=== PATIENT | male | born 1980 | race Caucasian/White ===

== ENCOUNTER 2021-07-25 09:53 | Observation (INO) | payer BC, SELFPAY ==
[2021-07-25] VITALS (8 sets, daily range): BP systolic 118–138; BP diastolic 61–89; PULSE 74–112; RESP 16–20; TEMP 36.1–38.4; O2SAT 95–100
--- NOTE | ~2021-07-25 | CT_ITS ---
EXAMINATION: CT brain wo con DATE: 07/25/2021 10:34 INDICATION: Syncope. TECHNIQUE: Computed tomography (CT) of the head was performed without intravenous contrast. The mA wa s adjusted according to patient size. Iterative reconstruction technique was employed. The dose-lengt h product was 605.33 mGy-cm. COMPARISON: None FINDINGS: There is no intracranial hemorrhage, acute infarction, or abnormal intracranial mass lesion . The ventricles are normal in size. There is mild mucosal thickening in the paranasal sinuses. The o rbits are normal. The mastoid air cells are normal. IMPRESSION: 1. Normal brain. Reviewed, dictated and finalized at location A. ENIR AND NOVELTY MAKER IMPRESSION: 1. Normal brain.
--- NOTE | ~2021-07-25 | CT_ITS ---
EXAMINATION: CT cervical spine wo con DATE: 07/25/2021 10:34 INDICATION: Head injury. TECHNIQUE: Computed tomography (CT) of the cervical spine was performed without intravenous contrast. Automated exposure control and iterative reconstruction technique were employed. The dose-length pro duct was 419.93 mGy-cm. COMPARISON: None FINDINGS: There is 5 degrees dextrocurvature of cervical spine. Vertebral body heights and interverte bral disc heights are normal. The following disc levels are specifically discussed: C2-C3: There is no uncovertebral joint osteoarthritis. There is mild right and moderate left facet mathew int osteoarthritis. There is no neural foraminal stenosis. There is no central canal stenosis. C3-C4: There is mild bilateral uncovertebral joint osteoarthritis. There is mild right facet joint os teoarthritis. There is no neural foraminal stenosis. There is no central canal stenosis. C4-C5: There is no uncovertebral joint osteoarthritis. There is no facet joint osteoarthritis. There is no neural foraminal stenosis. There is no central canal stenosis. C5-C6: There is severe right and mild left uncovertebral joint osteoarthritis. There is mild left fac et joint osteoarthritis. There is mild right neural foraminal stenosis. There is mild central canal s tenosis. C6-C7: There is mild bilateral uncovertebral joint osteoarthritis. There is mild bilateral facet join t osteoarthritis. There is mild right neural foraminal stenosis. There is mild central canal stenosis . C7-T1: There is no uncovertebral joint osteoarthritis. There is mild bilateral facet joint osteoarthr itis. There is no neural foraminal stenosis. There is no central canal stenosis. IMPRESSION: 1. No fracture. 2. Mild cervical spondylosis. Reviewed, dictated and finalized at location A. ER MANAGER
--- NOTE | ~2021-07-25 | XR_ITS ---
XR chest 1V portable DATE: 07/25/2021 10:34 INDICATION: Syncope TECHNIQUE: Portable upright AP chest on 07/25/2021 at 1031 hours COMPARISON: None FINDINGS: Normal heart size. No hilar or mediastinal enlargement. No pulmonary infiltrate or consolid ation, pleural effusion or pulmonary vascular congestion or pneumothorax. IMPRESSION: No active cardiopulmonary disease Reviewed, dictated and finalized at location B. TER HELPER
--- NOTE | 2021-07-25 10:12 | ECG_ITS ---
Measurements Intervals [place] Rate: 77 P: 42 LA: 156 QRS: 74 QRSD: 89 T: 53 QT: 363 QTc: 412 Interpretive Statements SINUS RHYTHM NORMAL ECG Electronically Signed On 07-25-2021 11:10:49 AGENCY SERVICE REPRESENTATIVE by Uriel Mann D.O.
[2021-07-25 10:26] LABS: Basophils Absolute Auto 0.03 K/mm3 (0.00-0.10); Basophils Percent Auto 0.3 % (0.0-1.0); Eosinophils Absolute Auto 0.01 K/mm3 (0.02-0.50); Eosinophils Percent Auto 0.1 % (1.0-6.0); Hematocrit 46.6 % (40.0-54.0); Immature Granulocyte Absolute 0.03 K/mm3 (0.00-0.00); Immature Granulocyte Percent A 0.3 % (0.0-0.0); Lymphocytes Absolute Auto 2.28 K/mm3 (1.10-4.50); Lymphocytes Percent Auto 21.1 % (18.0-42.0); Mean Corpuscular HGB Conc 34.3 g/dL (32.0-36.0); Mean Corpuscular Hemoglobin 31.1 pg (27.0-31.0); Mean Corpuscular Volume 90.7 fL (78.0-102.0); Mean Platelet Volume 9.7 fl (8.7-11.0); Monocytes Absolute Auto 1.24 K/mm3 (0.10-0.90); Monocytes Percent Auto 11.4 % (2.0-11.0); Neutrophils Absolute Auto 7.2 K/mm3 (1.7-7.2); Neutrophils Percent Auto 66.8 % (50.0-70.0); Platelet Count Result 251 K/mm3 (150-420); Red Blood Count 5.14 M/mm3 (4.70-6.10); Red Cell Distribution Width 11.6 % (11.6-14.4); White Blood Count 10.8 K/mm3 (4.8-10.8)
[2021-07-25] MEDS: ONDANSETRON INJ 4 MG/2 ML VIAL IV PUSH (10:29)
[2021-07-25] MEDS: SODIUM CHLORIDE 0.9% IV 1,000 ML 999 ML (10:30)
[2021-07-25] MEDS: PANTOPRAZOLE SODIUM IV 40 MG VIAL IV PUSH (10:30)
[2021-07-25 10:47] LABS: Alanine Aminotransferase 33 U/L (16-63); Albumin Level 3.9 g/dL (3.4-5.0); Alkaline Phosphatase 67 U/L (46-116); Anion Gap 14 mmol/L (8-16); Aspartate Amino Transferase 16 U/L (15-37); Bilirubin,Total 0.6 mg/dL (0.00-1.00); Blood Urea Nitrogen 11 mg/dL (7-18); Calcium 8.6 mg/dL (8.5-10.1); Carbon Dioxide 21 mmol/L (21-32); Chloride 102 mmol/L (98-108); Estimated CRCL calculation 83 ml/min; Estimated Glomerular Filt Rate > 60; Glucose 130 mg/dL (70-99); Lipase 123 U/L (73-393); Osmolality Calculated 285 mOsm/kg (285-295); Potassium 4.1 mmol/L (3.5-5.1); Sodium 137 mmol/L (136-145); Total Protein 7.8 g/dL (6.4-8.2)
[2021-07-25 10:56] LABS: Troponin I < 4.0 ng/L (0.00-60.4)
[2021-07-25 10:57] LABS: Ethanol < 3 mg/dL (0-6)
--- NOTE | 2021-07-25 11:03 | PC.NURSE ---
erp is notifed of ct report, c-collar can be removed and patient can walk to bathroom per erp. family at bedside with change of clothing.
[2021-07-25 11:38] LABS: Add Urine Microscopic? NO; Appearance Urine Clear (Clear); Bilirubin Urine Negative (Negative); Blood Urine Negative (Negative); Color Urine Light Yellow (Yellow); Glucose Urine UA Negative (Negative); Ketones Urine Negative (Negative); Leukocyte Esterase Ur Negative (Negative); Nitrate Urine Negative (Negative); Protein Urine Negative (Negative); Urobilinogen Urine 0.2 mg/dL (0.2-1.0); pH Urine 5.5 (5.0-8.0)
[2021-07-25 11:49] LABS: Amphetamine Screen Urine Negative (Negative); Barbiturate Screen Urine Negative (Negative); Benzodiazepines Screen Urine Negative (Negative); Cannabinoid Screen Urine Negative (Negative); Cocaine Screen Urine Negative (Negative); Methadone Screen Urine Negative (Negative); Opiate Screen Urine Negative (Negative); Phencyclidine Screen Urine Negative (Negative)
[2021-07-25 12:04] LABS: Influenza Control Valid (Valid)
[2021-07-25 13:22] LABS: Reflex Lactic Acid Yes or No Add Lactic
--- NOTE | 2021-07-25 13:38 | ED.SYNCOPE ---
HPI - Syncope General Chief Complaint: Syncope Stated Complaint: ambulance Time Seen by Provider: 07/25/21 09:57 Source: patient and RN notes reviewed Mode of arrival: ambulatory Limitations: no limitations History of Present Illness complaint: almost passed out Onset (ago): hour(s) (12) Context: standing up and other (pt was driving and became very nauseated. out of the car, he vomited and collapsed, seizing.) Injuries sustained associated with event: face Current symptoms: back to baseline and headache History: previous syncopal episode Treatments prior to arrival: IV fluids Related Data Home Medications Medication Instructions Recorded Confirmed No Home Medications 07/25/21 07/25/21 Allergies Allergy/AdvReac Type Severity Reaction Status Date / Time No Known Allergies Allergy Verified 07/25/21 10:21 Review of Systems Review of Systems: All systems reviewed & are unremarkable except as noted in HPI and below Neurologic: Comments: seizure episode PMFSH Past Medical History Medical History Seizure Social History Social History Smoking status: Never smoker Alcohol intake: current Drinks per week: 1 Substance use: never Spiritual care concerns: No Exam Const: General: no acute distress and alert Nutritional Appearance: well nourished Limitations: no limitations HENMT: Head: normal to inspection Ears: external ears normal and TM's normal bilaterally General nose exam: Normal external nose present and Normal nares present Mouth: Yes lip normal and Yes moist mucous membranes Teeth and gingiva: dentition normal Throat: posterior oropharynx normal Eyes: Pupils: Equal, round and reactive pupils present EOM: EOMs intact bilaterally Neck: Neck: normal visual inspection and no lymphadenopathy Chest: Chest palpation & inspection: normal inspection of the chest Resp: Effort & Inspection: normal respiratory effort Auscultation: clear to auscultation bilaterally Cardio: Rate: regular rate Rhythm: regular rhythm GI: Auscultation: normal bowel sounds : General: Yes bladder normal to palpation and Yes no CVA tenderness Back/Spine/Pelvis: Back: no CVA tenderness Skin: General skin exam: normal color Rashes: no rashes Neuro: General: patient oriented x3, moves all extremities, no meningeal signs, no focal motor deficits and CN's II-XI intact bilaterally Extrem: General: normal to inspection and no pedal edema Psych: Appearance: grossly normal and well kempt Affect: normal affect Attitude: cooperative Thought content: Yes Normal thought content present Course Course Emergency Course: Pt was d/w Neurologist Dr Teran: admit to Observation. Start Keppra and plan for PO Keppra and early Neuro f/u when the pt is discharged. Reevaluation(s) Reevaluation #1: Pt had no seizure in the ED. for admission and Neurology consult shabana. Date: 07/25/21 Time: 10:55 Vital Signs Vital signs: Vital Signs Temperature 36.1 C L 07/25/21 10:02 Pulse Rate 82 07/25/21 10:02 Respiratory Rate 20 07/25/21 10:02 Blood Pressure 131/87 07/25/21 10:02 Pulse Oximetry 95 07/25/21 10:02 Temperature 36.6 C 07/26/21 12:00 Pulse Rate 75 07/26/21 12:00 Respiratory Rate 18 07/26/21 12:00 Blood Pressure 111/68 07/26/21 12:00 Pulse Oximetry 96 07/26/21 12:00 MDM - Syncope Differential Diagnosis Differential diagnosis: Likely syncope due to orthostatic hypotension, vasovagal syncope, dehydration and other (new-onset seizure) Medical Records Attestation: I reviewed the patient's medical records. Lab Data Attestation: I reviewed the patient's lab results. Result diagrams: 07/26/21 05:39 07/26/21 05:39 Labs: Lab Results 07/25/21 07/25/21 07/25/21 Range/Units 10:12 10:16 10:16 WBC (4.8-10.8) K/mm3 RBC (4.70-6.10)
[2021-07-25] MEDS: levETIRAcetam 1000MG/NACL100ML 1,000 MG/100 ML BAG 400 MG IVPB (13:40)
[2021-07-25 14:29] LABS: Lactic Acid 1.3 mmol/L (0.4-2.0)
[2021-07-25 14:51] LABS: SARS-CoV-2 Ag Positive (Negative)
[2021-07-25] MEDS: SODIUM CHLORIDE 0.9% IV 1,000 ML 100 ML IV CONT (16:28)
--- NOTE | 2021-07-25 16:34 | ADMGEN ---
This patient, Gerry Sanchez, was admitted to 2nd Floor Room 212-1. Patient/family oriented to hospital policies and general routines including ID bracelet, bed and alarms, visiting hours, pain management, procedures, bathroom and other care routines, personal items, smoking policy, room service/diet, and visiting hours. Information on how to activate the Rapid Response Team has been discussed. Patient/Family are encouraged to report perceived risks to care and to ask questions if they do not understand what they are told or what they should do.
--- NOTE | 2021-07-25 20:45 | PC.NURSE ---
Pt sitting bedside watching TV on his computer. Pt bundled in covers and reports slight sore throat, noted flushed skin and temp of 101. Pt denies any other sxs and drinking water and ice chips. Pt is fully ambulatory in room per self and has no other c/o. Order obtained for prn Tylenol. Call browne at pt side and encouraged to call if anything needed. Pt verbalized understanding.
[2021-07-25] MEDS: ACETAMINOPHEN 500 MG TABLET 1000 MG PO (21:25)
--- NOTE | 2021-07-26 00:29 | PC.NURSE ---
Pt sleeping, no distress noted, call browne within pt reach.
[2021-07-26] MEDS: SODIUM CHLORIDE 0.9% IV 1,000 ML 100 ML IV CONT (03:08)
[2021-07-26 04:25] VITALS: BP 134/80; PULSE 84; RESP 20; TEMP 37.3; O2SAT 96
[2021-07-26 05:49] LABS: Basophils Absolute Auto 0.02 K/mm3 (0.00-0.10); Basophils Percent Auto 0.3 % (0.0-1.0); Eosinophils Absolute Auto 0.02 K/mm3 (0.02-0.50); Eosinophils Percent Auto 0.3 % (1.0-6.0); Hemoglobin 14.5 g/dL (14.0-18.0); Immature Granulocyte Absolute 0.02 K/mm3 (0.00-0.00); Immature Granulocyte Percent A 0.3 % (0.0-0.0); Lymphocytes Absolute Auto 1.94 K/mm3 (1.10-4.50); Lymphocytes Percent Auto 24.7 % (18.0-42.0); Mean Corpuscular HGB Conc 33.7 g/dL (32.0-36.0); Mean Corpuscular Hemoglobin 30.9 pg (27.0-31.0); Mean Corpuscular Volume 91.7 fL (78.0-102.0); Mean Platelet Volume 9.6 fl (8.7-11.0); Monocytes Absolute Auto 0.69 K/mm3 (0.10-0.90); Monocytes Percent Auto 8.8 % (2.0-11.0); Neutrophils Absolute Auto 5.2 K/mm3 (1.7-7.2); Neutrophils Percent Auto 65.6 % (50.0-70.0); Platelet Count Result 238 K/mm3 (150-420); Red Blood Count 4.69 M/mm3 (4.70-6.10); Red Cell Distribution Width 11.7 % (11.6-14.4); White Blood Count 7.9 K/mm3 (4.8-10.8)
[2021-07-26 06:02] LABS: Alanine Aminotransferase 25 U/L (16-63); Albumin Level 3.4 g/dL (3.4-5.0); Alkaline Phosphatase 57 U/L (46-116); Anion Gap 10 mmol/L (8-16); Aspartate Amino Transferase 12 U/L (15-37); Bilirubin,Total 0.5 mg/dL (0.00-1.00); Blood Urea Nitrogen 6 mg/dL (7-18); Calcium 8.2 mg/dL (8.5-10.1); Carbon Dioxide 25 mmol/L (21-32); Chloride 104 mmol/L (98-108); Estimated CRCL calculation 101 ml/min; Estimated Glomerular Filt Rate > 60; Glucose 105 mg/dL (70-99); Osmolality Calculated 285 mOsm/kg (285-295); Sodium 139 mmol/L (136-145); Total Protein 6.9 g/dL (6.4-8.2)
--- NOTE | 2021-07-26 06:46 | PC.NURSE ---
Pt sleeping, no distress, call browne in reach.
[2021-07-26 08:00] VITALS: BP 128/80; PULSE 92; RESP 16; TEMP 37.6; O2SAT 97
[2021-07-26 08:39] VITALS: TEMP 37.7
[2021-07-26] MEDS: ACETAMINOPHEN 500 MG TABLET 1000 MG PO (08:39)
[2021-07-26 10:25] VITALS: TEMP 36.7
--- NOTE | 2021-07-26 10:35 | PM.SD2 ---
Same Day Admit/Disch: HPI History of Present Illness Chief complaint: SIEZURES <TRUDI Marlow - Last Filed: 07/26/21 12:13> Narrative: Gerry Sanchez is a 41 year old male who has been admitted under Observation for Seizure activity. Pt states he was driving back home with his after a work conference in [place], [place]. he began to feel ill and pulled over to the side of the road. He moved to the back of his vehicle thinking he was going to vomit. He states he began to feel like he was going to vomit and the next thing he recalls is waking up to his on the phone with 911. Pt states he does not recall any CP, SOB, palpitations, numbness, tingling, weakness, blurred or changes in vision. He only felt ill like he was going to vomit. He has not had any changes in his medications and in fact does not take any medications. He denies ever having seizure activity in the past. Transfer to another facility is not possible at this time. Pt will be given orders for outpatient MRI w/ contrast and for EEG. <TRUDI Marlow - Last Filed: 07/26/21 12:13> [facility] Past Medical History Medical History: Medical History Seizure <TRUDI Marlow - Last Filed: 07/26/21 12:13> Social History Social History: Social History Smoking status: Never smoker Alcohol intake: current Drinks per week: 1 Substance use: never Spiritual care concerns: No <TRUDI Marlow - Last Filed: 07/26/21 12:13> Same Day Admit/Disch: Med Pre-admit Medications Home Medications: Home Medications Medication Instructions Recorded Confirmed Type No Home Medications 07/25/21 07/25/21 History dexamethasone [Decadron] 6 mg PO DAILY #10 tablet 07/26/21 Rx levetiracetam [Keppra] 500 mg PO Q12HR #60 tablet 07/26/21 Rx <TRUDI Marlow - Last Filed: 07/26/21 12:13> Exam Const: General: cooperative, healthy appearing, comfortable, no acute distress, well developed, alert, awake and Physically active <Tommie Cabrera NATHAN - Last Filed: 07/26/21 12:13> Nutritional Appearance: average body habitus <Tommie Cabrera NATHAN-C - Last Filed: 07/26/21 12:13> HENMT: Head: normal to inspection, normocephalic and atraumatic <Tommie Cabrera VP INTEGRATION - Last Filed: 07/26/21 12:13> Ears: hearing grossly normal bilaterally <Tommie Cabrera APN - Last Filed: 07/26/21 12:13> Eyes: General: appearance normal, both eyes and all related structures <Tommie Cabrera VP INTEGRATION - Last Filed: 07/26/21 12:13> Alignment and Position: alignment normal <Tommie Cabrera VP INTEGRATION - Last Filed: 07/26/21 12:13> Periorbital: periorbital findings normal <Tommie Cabrera APN - Last Filed: 07/26/21 12:13> Eyelids: eyelids normal <Tommie Cabrera APN - Last Filed: 07/26/21 12:13> Conjunctivae: conjunctivae normal <Tommie Cabrera APN - Last Filed: 07/26/21 12:13> Pupils: Equal, round and reactive pupils present <Tommie Cabrera VP INTEGRATION - Last Filed: 07/26/21 12:13> Neck: Neck: full ROM and no JVD <Tommie Cabrera VP INTEGRATION - Last Filed: 07/26/21 12:13> Resp: Effort & Inspection: normal respiratory effort and no cough <Tommie Cabrera VP INTEGRATION - Last Filed: 07/26/21 12:13> Auscultation: clear to auscultation bilaterally, no crackles, no rales, no rhonchi and no wheezes <Tommie Cabrera VP INTEGRATION- - Last Filed: 07/26/21 12:13> Cardio: Jugular venous distension: no JVD <TRUDI Marlow - Last Filed: 07/26/21 12:13> Rate: regular rate <TRUDI Marlow - Last Filed: 07/26/21 12:13> Heart sounds: S1 normal heart sound present and S2 normal heart sound present <TRUDI Marlow - Last Filed: 07/26/21 12:13> GI: GI Palp: Yes Soft to palpation, No Tenderness to palpation present (GI) and No Guarding due to palpation present (GI) <TRUDI Marlow - Last Filed: 07/26/21 12:13> Auscultation: nor
[2021-07-26] MEDS: levETIRAcetam 500 MG TABLET PO (11:08)
[2021-07-26 12:00] VITALS: BP 111/68; PULSE 75; RESP 18; TEMP 36.6; O2SAT 96
--- NOTE | 2021-07-26 13:02 | PC.NURSE ---
Discharge and isolation instructions reviewed with patient. Advised patient to isolate for 9 more days. Patient voiced understanding. Patient able to ambulate independently off conde. Personal items sent with patient at discharge.
--- NOTE | 2021-07-28 10:42 | PC.NURSE ---
Unable to contact for discharge call back.
== END 2021-07-26 12:45 | disposition home or self-care (01) ==
LOC: CHSED 09:58 → CHS2ND 13:35
PROVIDERS: Admitting Provider Emergency Medicine; Emergency Provider Emergency Medicine; Visit Provider Emergency Medicine
DX: U07.1 COVID-19 (principal); R55 Syncope and collapse; R56.9 Unspecified convulsions
CPT/HCPCS: 36415; 70450; 71045; 72125; 80053; 80307; 81003; 83605; 83690; 84484; 85025; 87081; 87426; 87804; 87880; 93005; 96361; 96365; 96366; 96375; 99285; A9270; C9113; C9803; G0378; J1953; J2405; J7030; L0150